=== PATIENT | male | born 1990 | race Hispanic/Latino ===

== ENCOUNTER 2017-10-09 01:12 | Emergency (ER) | payer SELFPAY ==
[2017-10-09 01:17] VITALS: BP 119/68; PULSE 108; RESP 18; TEMP 98.2; O2SAT 100
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
== END 2017-10-09 06:26 | disposition home or self-care (01) ==
LOC: H.ER 01:12
DX: F10.129 Alcohol abuse with intoxication, unspecified (principal); S01.311A Laceration without foreign body of right ear, initial encounter; W19.XXXA Unspecified fall, initial encounter; Y92.89 Other specified places as the place of occurrence of the external cause